=== PATIENT | female | born 1990 | race Hispanic/Latino ===

== ENCOUNTER 2020-08-18 05:56 | Emergency (ER) | payer OTHER, SELFPAY ==
[~2020-08-18] VITALS: Ht 160 cm; Wt 74.1 kg
[2020-08-18] MEDS ORDERED: PROP120C PO ×2 (06:26→10:02)
[2020-08-18 06:59] LABS: BASO % 0.4 % (0.0-1.0); EOS # 0.1 10^3/uL (0.0-0.5); EOS % 0.7 % (0.0-3.0); HEMATOCRIT 42.1 % (36.0-47.0); HEMOGLOBIN 13.4 g/dl (12.0-15.5); LYMPH # 2.9 10^3/uL (1.5-5.0); LYMPH % 38.6 % (24.0-44.0); MEAN CORPUSCULAR HEMOGLOBIN 29.4 pg (27.0-33.0); MEAN CORPUSCULAR HGB CONC 31.8 g/dl (32.0-36.5); MEAN CORPUSCULAR VOLUME 92.3 fl (80.0-96.0); MONO # 0.6 10^3/uL (0.0-0.8); MONO % 7.7 % (2.0-8.0); NEUTROPHILS # 3.9 10^3/uL (1.5-8.5); NEUTROPHILS % 52.3 % (36.0-66.0); PLATELET COUNT, AUTOMATED 280 10^3/uL (150-450); RED BLOOD COUNT 4.56 10^6/uL (4.00-5.40); WHITE BLOOD COUNT 7.4 10^3/uL (4.0-10.0)
[2020-08-18 07:33] LABS: BLOOD UREA NITROGEN 13 MG/DL (7-18); CALCIUM LEVEL 8.7 MG/DL (8.5-10.1); CARBON DIOXIDE LEVEL 27 MEQ/L (21-32); CHLORIDE LEVEL 108 MEQ/L (98-107); CK-MB VALUE MASS < 1.0 NG/ML (<3.6); CPK CREATINE PHOSPHOKINASE 112 U/L (26-192); CREATININE FOR GFR 0.71 MG/DL (0.55-1.30); FREE T4 0.96 NG/DL (0.76-1.46); GLOMERULAR FILTRATION RATE > 60.0 (>60); GLUCOSE, FASTING 89 MG/DL (70-100); MAGNESIUM LEVEL 2.2 MG/DL (1.8-2.4); MB/CK RELATIVE INDEX 0.89 (< OR =4); POTASSIUM SERUM 3.7 MEQ/L (3.5-5.1); SODIUM LEVEL 141 MEQ/L (136-145); TROPONIN I < 0.02 NG/ML (< 0.10)
[2020-08-18 07:38] LABS: HCG, SERUM QUALITATIVE NEGATIVE (NEGATIVE)
--- NOTE | 2020-08-18 08:26 | REP ---
INDICATION: CHEST PAIN. COMPARISON: . TECHNIQUE: Chest portable AP chest with the patient upright. FINDINGS: The lung sainz are clear. Cardiac size is normal. The nayely, mediastinum and skeletal structures are unremarkable. IMPRESSION: Essentially negative portable chest <Electronically signed by Jhonathan Scott > 08/18/20 [id number]
[2020-08-18 10:23] VITALS: BP 111/75
--- NOTE | 2020-08-19 01:36 | ECGEPIP ---
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
== END 2020-08-18 10:31 | disposition home or self-care (01) ==
LOC: M ED 05:56
DX: R00.2 Palpitations (principal); I47.1 Supraventricular tachycardia; Z88.0 Allergy status to penicillin; Z88.8 Allergy status to other drugs, medicaments and biological substances; Z91.89 Other specified personal risk factors, not elsewhere classified; Z91.030 Bee allergy status; Z91.013 Allergy to seafood

== ENCOUNTER 2020-09-25 18:52 | Emergency (ER) | payer SELFPAY ==
[~2020-09-25] VITALS: Ht 160 cm; Wt 74.1 kg
[~2020-09-25 18:52] MED LIST: PROP120C PO
[2020-09-25] MEDS ORDERED: METOPROLOL 5 MG/5 ML VIAL IV STA (19:40)
[2020-09-25] MEDS ORDERED: NS 1,000 ML IV ONE (19:50)
--- NOTE | 2020-09-25 19:51 | ECGEPIP ---
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
[2020-09-25 19:52] VITALS: BP 129/79
[2020-09-25 20:15] LABS: BASO % 0.3 % (0.0-1.0); EOS % 0.3 % (0.0-3.0); HEMATOCRIT 38.9 % (36.0-47.0); HEMOGLOBIN 12.7 g/dl (12.0-15.5); LYMPH # 3.1 10^3/uL (1.5-5.0); LYMPH % 29.1 % (24.0-44.0); MEAN CORPUSCULAR HEMOGLOBIN 29.3 pg (27.0-33.0); MEAN CORPUSCULAR HGB CONC 32.6 g/dl (32.0-36.5); MEAN CORPUSCULAR VOLUME 89.8 fl (80.0-96.0); MONO # 0.6 10^3/uL (0.0-0.8); MONO % 5.3 % (2.0-8.0); NEUTROPHILS # 6.9 10^3/uL (1.5-8.5); NEUTROPHILS % 64.6 % (36.0-66.0); PLATELET COUNT, AUTOMATED 280 10^3/uL (150-450); RED BLOOD COUNT 4.33 10^6/uL (4.00-5.40); WHITE BLOOD COUNT 10.7 10^3/uL (4.0-10.0)
[2020-09-25 21:02] LABS: ALBUMIN 3.9 GM/DL (3.2-5.2); ALT/SGPT 20 U/L (12-78); BILIRUBIN,DIRECT < 0.1 MG/DL (0.0-0.2); BILIRUBIN,TOTAL 0.3 MG/DL (0.2-1.0); BLOOD UREA NITROGEN 8 MG/DL (7-18); CALCIUM LEVEL 9.5 MG/DL (8.5-10.1); CARBON DIOXIDE LEVEL 26 MEQ/L (21-32); CHLORIDE LEVEL 106 MEQ/L (98-107); CK-MB VALUE MASS < 1.0 NG/ML (<3.6); CPK CREATINE PHOSPHOKINASE 94 U/L (26-192); CREATININE FOR GFR 0.79 MG/DL (0.55-1.30); GLOMERULAR FILTRATION RATE > 60.0 (>60); GLUCOSE, FASTING 99 MG/DL (70-100); MB/CK RELATIVE INDEX 1.06 (< OR =4); POTASSIUM SERUM 4.1 MEQ/L (3.5-5.1); RSV AMPLIFICATION NEGATIVE (NEGATIVE); SODIUM LEVEL 139 MEQ/L (136-145); THYROXINE (T4) 7.4 UG/DL (4.5-12.0); TOTAL PROTEIN 7.6 GM/DL (6.4-8.2); TROPONIN I < 0.02 NG/ML (< 0.10)
[2020-09-25 21:21] LABS: HCG, SERUM QUALITATIVE NEGATIVE (NEGATIVE)
[2020-09-25] MEDS ORDERED: ISOVUE-370 76% 100ML VIAL As Ordered ONE (21:51)
--- NOTE | 2020-09-25 22:06 | REPVR ---
PROCEDURE INFORMATION: Exam: XR Chest Exam date and time: 09/25/2020 9:34 PM Age: 30 years old Clinical indication: Cough and dyspnea; Additional info: Dyspnea/cough TECHNIQUE: Imaging protocol: XR of the chest. Views: 1 view. COMPARISON: SD PORTABLE CHEST X-RAY 08/18/2020 8:19 AM FINDINGS: Lungs: Unremarkable. No consolidation. Pleural spaces: Unremarkable. No pleural effusion. No pneumothorax. Heart/Mediastinum: Unremarkable. No cardiomegaly. Bones/joints: Unremarkable. IMPRESSION: No acute findings. Electronically signed by: Edy Crawford On 09/25/2020 22:06:03 PM
--- NOTE | 2020-09-25 22:41 | REPVR ---
PROCEDURE INFORMATION: Exam: CTA Chest With Contrast Exam date and time: 09/25/2020 10:11 PM Age: 30 years old Clinical indication: Abnormal findings; Other: High d-dimer; Prior surgery; Surgery date: 6+ months; Additional info: Eval for pe, tacycardia with elevated dimer TECHNIQUE: Imaging protocol: Computed tomographic angiography of the chest with contrast. 3D rendering (Not supervised by radiologist): MIP and/or 3D reconstructed images were created by the technologist. Radiation optimization: All CT scans at this facility use at least one of these dose optimization techniques: automated exposure control; mA and/or kV adjustment per patient size (includes targeted exams where dose is matched to clinical indication); or iterative reconstruction. Contrast material: ISOVUE 370; Contrast volume: 75 ml; Contrast route: INTRAVENOUS (IV); COMPARISON: CR PORTABLE CHEST X-RAY 09/25/2020 9:28 PM FINDINGS: Pulmonary arteries: The main pulmonary artery measures 21 mm. No pulmonary embolism is identified. Aorta: The ascending thoracic aorta measures 26 mm. Lungs: Unremarkable. No consolidation. No masses. Pleural spaces: Unremarkable. No pneumothorax. No pleural effusion. Heart: Unremarkable. No cardiomegaly. No pericardial effusion. Lymph nodes: Unremarkable. No enlarged lymph nodes. Gallbladder and bile ducts: The gallbladder is contracted with no stones. Bones/joints: Unremarkable. No acute fracture. Soft tissues: Unremarkable. IMPRESSION: Negative CTA chest. No pulmonary embolism is identified. Electronically signed by: Moy Blake On 09/25/2020 22:41:34 PM
[2020-09-25 23:20] VITALS: BP 116/94
== END 2020-09-25 23:23 | disposition home or self-care (01) ==
LOC: M ED 18:52
DX: R00.0 Tachycardia, unspecified (principal); R00.2 Palpitations; Z95.818 Presence of other cardiac implants and grafts; F41.9 Anxiety disorder, unspecified; F43.10 Post-traumatic stress disorder, unspecified; Z88.0 Allergy status to penicillin; Z91.89 Other specified personal risk factors, not elsewhere classified; Z88.8 Allergy status to other drugs, medicaments and biological substances; Z91.013 Allergy to seafood; Z91.030 Bee allergy status
CPT/HCPCS: 71045; 71275; 80048; 80076; 82550; 82553; 83735; 84436; 84443; 84484; 84703; 85025; 85379; 87631; 93005; 93041; 94760; 96361; 96374; 99285; Q9967

== ENCOUNTER 2020-11-06 11:59 | Emergency (ER) | payer OTHER, SELFPAY ==
[~2020-11-06] VITALS: Ht 160 cm; Wt 75.1 kg
[2020-11-06] MEDS ORDERED: METO1TAB87 (12:15)
[2020-11-06 13:07] LABS: HEMATOCRIT 42.1 % (36.0-47.0); HEMOGLOBIN 13.4 g/dl (12.0-15.5); MEAN CORPUSCULAR HGB CONC 31.8 g/dl (32.0-36.5); MEAN CORPUSCULAR VOLUME 91.1 fl (80.0-96.0); PLATELET COUNT, AUTOMATED 277 10^3/uL (150-450); RED BLOOD COUNT 4.62 10^6/uL (4.00-5.40)
[2020-11-06 13:35] LABS: HCG, SERUM QUALITATIVE NEGATIVE (NEGATIVE)
[2020-11-06 13:36] VITALS: BP 132/83
[2020-11-06 13:36] LABS: AMPHETAMINES LEVEL URINE NEGATIVE (NEGATIVE); BARBITURATES URINE NEGATIVE (NEGATIVE); BENZODIAZEPINES URINE NEGATIVE (NEGATIVE); CANNABINOIDS URINE NEGATIVE (NEGATIVE); COCAINE METABOLITE URINE NEGATIVE (NEGATIVE); METHADONE URINE NEGATIVE (NEGATIVE); OPIATES URINE NEGATIVE (NEGATIVE); PHENCYCLIDINE URINE NEGATIVE (NEGATIVE)
[2020-11-06 13:44] LABS: BLOOD UREA NITROGEN 8 MG/DL (7-18); CARBON DIOXIDE LEVEL 28 MEQ/L (21-32); CHLORIDE LEVEL 105 MEQ/L (98-107); CREATININE FOR GFR 0.72 MG/DL (0.55-1.30); FREE THYROXINE INDEX 1.9 % (1.3-4.8); GLOMERULAR FILTRATION RATE > 60.0 (>60); GLUCOSE, FASTING 86 MG/DL (70-100); MAGNESIUM LEVEL 2.1 MG/DL (1.8-2.4); SODIUM LEVEL 139 MEQ/L (136-145); T UPTAKE 27 % (30-39); THYROXINE (T4) 6.9 UG/DL (4.5-12.0)
--- NOTE | 2020-11-07 16:54 | ECGEPIP ---
[facility] - ED Test Date: 2020-11-06 Pat Name: AMOL BLAIR Department: Room: - Gender: Female Payroll Lead: LR : 1990 Requested By: Ragini Vera Order Number: [id number] Reading MD: Ragini Vera Measurements Intervals [place] Rate: 107 P: 68 ND: 160 QRS: 61 QRSD: 72 T: 16 QT: 334 QTc: 445 Interpretive Statements Sinus tachycardia Low voltage QRS NSTTW abnormalities decreased rate 09/25/20 Electronically Signed on 11-07-2020 16:54:02 EDT by Ragini Vera
== END 2020-11-06 14:23 | disposition home or self-care (01) ==
LOC: EDBD 11:59 → M ED 11:59
DX: R00.0 Tachycardia, unspecified (principal); H61.21 Impacted cerumen, right ear; R42 Dizziness and giddiness; Z95.818 Presence of other cardiac implants and grafts; Z79.899 Other long term (current) drug therapy; Z88.0 Allergy status to penicillin; Z88.8 Allergy status to other drugs, medicaments and biological substances; Z91.013 Allergy to seafood; Z91.030 Bee allergy status; Z91.89 Other specified personal risk factors, not elsewhere classified

== ENCOUNTER 2020-11-17 19:49 | Emergency (ER) | payer OTHER ==
[~2020-11-17 19:49] MED LIST changes: +METO1TAB87
[2020-11-17 20:19] LABS: BASO # 0.1 10^3/uL (0.0-0.2); BASO % 0.6 % (0.0-1.0); EOS # 0.1 10^3/uL (0.0-0.5); EOS % 0.7 % (0.0-3.0); HEMATOCRIT 40.6 % (36.0-47.0); LYMPH # 3.3 10^3/uL (1.5-5.0); LYMPH % 40.2 % (24.0-44.0); MEAN CORPUSCULAR VOLUME 90.6 fl (80.0-96.0); MONO # 0.6 10^3/uL (0.0-0.8); MONO % 7.7 % (2.0-8.0); NEUTROPHILS # 4.1 10^3/uL (1.5-8.5); NEUTROPHILS % 50.3 % (36.0-66.0); PLATELET COUNT, AUTOMATED 274 10^3/uL (150-450); RED BLOOD COUNT 4.48 10^6/uL (4.00-5.40); WHITE BLOOD COUNT 8.1 10^3/uL (4.0-10.0)
[2020-11-17 20:51] LABS: HCG, SERUM QUALITATIVE NEGATIVE (NEGATIVE)
[2020-11-17 21:00] LABS: BLOOD UREA NITROGEN 10 MG/DL (7-18); CALCIUM LEVEL 9.2 MG/DL (8.5-10.1); CARBON DIOXIDE LEVEL 28 MEQ/L (21-32); CHLORIDE LEVEL 108 MEQ/L (98-107); CK-MB VALUE MASS < 1.0 NG/ML (<3.6); CPK CREATINE PHOSPHOKINASE 83 U/L (26-192); CREATININE FOR GFR 0.76 MG/DL (0.55-1.30); FREE T4 0.85 NG/DL (0.76-1.46); GLOMERULAR FILTRATION RATE > 60.0 (>60); GLUCOSE, FASTING 98 MG/DL (70-100); POTASSIUM SERUM 4.1 MEQ/L (3.5-5.1); SODIUM LEVEL 141 MEQ/L (136-145); TROPONIN I < 0.02 NG/ML (< 0.10)
--- NOTE | 2020-11-17 21:28 | ECGEPIP ---
[facility] - ED Test Date: 2020-11-17 Pat Name: AMOL BLAIR Department: Room: - Gender: Female Database Dba: : 1990 Requested By: HAY Delgado Order Number: [id number] Reading MD: Delfino Cameron Measurements Intervals [place] Rate: 105 P: 51 [place]: 152 QRS: 4 QRSD: 74 T: 14 QT: 338 QTc: 446 Interpretive Statements Sinus tachycardia NSTTW ABNORMALITY(S) BASELINE ARTIFACT AFFECTS INTERPRETATION Electronically Signed on 11-17-2020 21:27:36 EDT by Delfino Cameron
--- NOTE | 2020-11-17 22:16 | REPVR ---
PROCEDURE INFORMATION: Exam: XR Chest Exam date and time: 11/17/2020 9:26 PM Age: 30 years old Clinical indication: Pain; Angina pectoris; Additional info: Chest pain TECHNIQUE: Imaging protocol: XR of the chest. Views: 1 view. COMPARISON: CR PORTABLE CHEST X-RAY 09/25/2020 9:28 PM FINDINGS: Tubes, catheters and devices: A loop recorder is again noted. Lungs: Unremarkable. No consolidation. Pleural spaces: Unremarkable. No pleural effusion. No pneumothorax. Heart/Mediastinum: Unremarkable. No cardiomegaly. Bones/joints: Unremarkable. IMPRESSION: Stable essentially negative chest since 09/25/2020. Electronically signed by: Moy Blake On 11/17/2020 22:16:17 PM
[2020-11-17 22:30] VITALS: BP 147/76
== END 2020-11-17 22:56 | disposition home or self-care (01) ==
LOC: M ED 19:49
DX: R00.0 Tachycardia, unspecified (principal); F43.10 Post-traumatic stress disorder, unspecified; Z88.0 Allergy status to penicillin; Z88.8 Allergy status to other drugs, medicaments and biological substances; Z91.89 Other specified personal risk factors, not elsewhere classified; Z91.013 Allergy to seafood; Z91.030 Bee allergy status

== ENCOUNTER 2021-03-08 12:43 | Emergency (ER) | payer OTHER ==
[~2021-03-08] VITALS: Ht 160 cm; Wt 77.3 kg
--- OUTSIDE RECORDS SUMMARY | 2021-03-08 12:51 | CCD ---
Author Author [facility] Organization [facility] Address Unknown Phone Unavailable Care Team Providers Care Retort Pre Cooker Name Role Phone Nelson Chahal MD Unavailable Unavailable Nelson Chahal MD Unavailable Unavailable Nelson Chahal MD Unavailable Unavailable Xexemeku, K Jon SORTO Unavailable Unavailable Xexemeku, K Jon SORTO Unavailable Unavailable Xexemeku, K Jon SORTO Unavailable Unavailable Xexemeku, K Jon SORTO Unavailable Unavailable Xexemeku, K Jon SORTO Unavailable Unavailable Xexemeku, K Jon SORTO Unavailable Unavailable Xexemeku, K Jon SORTO Unavailable Unavailable Xexemeku, K Jon SORTO Unavailable Unavailable Xexemeku, K Jon SORTO Unavailable Unavailable Xexemeku, K Jon SORTO Unavailable Unavailable Xexemeku, K Jon SORTO Unavailable Unavailable Xexemeku, K Jon SORTO Unavailable Unavailable Xexemeku, K Jon SORTO Unavailable Unavailable Xexemeku, K Jon SORTO Unavailable Unavailable Xexemeku, K Jon SORTO Unavailable Unavailable Xexemeku, K Jon SORTO Unavailable Unavailable Xexemeku, K Jon SORTO Unavailable Unavailable Xexemeku, K Jon SORTO Unavailable Unavailable Xexemeku, K Jon SORTO Unavailable Unavailable Xexemeku, K Jon SORTO Unavailable Unavailable Xexemeku, K Jon SORTO Unavailable Unavailable Xexemeku, K Jon SORTO Unavailable Unavailable Xexemeku, K Jon SORTO Unavailable Unavailable Xexemeku, K Jon SORTO Unavailable Unavailable Xexemeku, K Jon SORTO Unavailable Unavailable Xexemeku, K Jon SORTO Unavailable Unavailable Xexemeku, K Jon SORTO Unavailable Unavailable Xexemeku, K Jon SORTO Unavailable Unavailable Xexemeku, K Jon SORTO Unavailable Unavailable Xexemeku, K Jon SORTO Unavailable Unavailable Xexemeku, K Jon SORTO Unavailable Unavailable Xexemeku, K Jon SORTO Unavailable Unavailable Xexemeku, K Jon SORTO Unavailable Unavailable Xexemeku, K Jon SORTO Unavailable Unavailable Xexemeku, K Jon SORTO Unavailable Unavailable Xexemeku, K Jon SORTO Unavailable Unavailable Xexemeku, K Jon SORTO Unavailable Unavailable Xexemeku, K Jon SORTO Unavailable Unavailable Xexemeku, K Jon SORTO Unavailable Unavailable Xexemeku, K Jon SORTO Unavailable Unavailable Xexemeku, K Jon SORTO Unavailable Unavailable Xexemeku, K Jon SORTO Unavailable Unavailable Xexemeku, K Jon SORTO Unavailable Unavailable Xexemeku, K Jon SORTO Unavailable Unavailable Xexemeku, K Jon SORTO Unavailable Unavailable Xexemeku, K Jon SORTO Unavailable Unavailable Xexemeku, K Jon SORTO Unavailable Unavailable Xexemeku, K Jon SORTO Unavailable Unavailable Xexemeku, K Jon SORTO Unavailable Unavailable Xexemeku, K Jon SORTO Unavailable Unavailable Xexemeku, K Jon SORTO Unavailable Unavailable Xexemeku, K Jon SORTO Unavailable Unavailable Xexemeku, K Jon SORTO Unavailable Unavailable Xexemeku, K Jon SORTO Unavailable Unavailable Xexemeku, K Jon SORTO Unavailable Unavailable Xexemeku, K Jon SORTO Unavailable Unavailable Xexemeku, K Jon SORTO Unavailable Unavailable Xexemeku, K Jon SORTO Unavailable Unavailable PHYSICIAN, PHYSICIAN ER Unavailable Unavailable Carlos Lai MD Unavailable Unavailable Carlos Lai MD Unavailable Unavailable Carlos Lai MD Unavailable Unavailable Carlos Lai MD Unavailable Unavailable Carlos Lai MD Unavailable Unavailable Carlos Lai MD Unavailable Unavailable Carlos Lai MD Unavailable Unavailable Carlos Lai MD Unavailable Unavailable Carlos Lai MD Unavailable Unavailable Carlos Lai MD Unavailable Unavailable Carlos Lai MD Unavailable Unavailable Carlos aLi MD Unavailable Unavailable Carlos Lai MD Unavailable Unavailable Carlos Lai MD Unavailable Unavailable Carlos Lai MD Unavailable Unavailable Carlos Lai MD Unavailable Unavailable Carlos Lai MD Unavailable Unavailable Carlos Lai MD Unavailable Unavailable Carlos Lai MD Unavailable Unavailable Carlos Lai MD Unavailable Unavailable Carlos Lai MD Unavailable Unavailable Carlos Lai MD Unavailable Unavailable Carlos Lai MD Unavailable Unavailable Carlos Lai MD Unavailable Unavailable Carlos Lai MD Unavailable Unavailable PHYSICIAN, ER Unavailable Unavailable Re-disclosure Warning The records that you are about to access may contain information from federally-assisted alcohol or drug abuse programs. If such information is present, then the following federally mandated warning applies: This information has been disclosed to you from records protected by federal confidentiality rules (42 CFR part 2). The federal rules prohibit you from making any further disclosure of this information unless further disclosure is expressly permitted by the written consent of the person to whom it pertains or as otherwise permitted by 42 CFR part 2. A general authorization for the release of medical or other information is NOT sufficient for this purpose. The Federal rules restrict any use of the information to criminally investigate or prosecute any alcohol or drug abuse patient.The records that you are about to access may contain highly sensitive health information, the redisclosure of which is protected by Article 27-F of the [facility] Public Health law. If you continue you may have access to information: Regarding HIV / AIDS; Provided by facilities licensed or operated by the [facility] Office of Mental Health; or Provided by the [facility] Office for People With Developmental Disabilities. If such information is present, then the following [facility] mandated warning applies: This information has been disclosed to you from confidential records which are protected by state law. State law prohibits you from making any further disclosure of this information without the specific written consent of the person to whom it pertains, or as otherwise permitted by law. Any unauthorized further disclosure in violation of state law may result in a fine or fdc sentence or both. A general authorization for the release of medical or other information is NOT sufficient authorization for further disc losure. Encounters Encounter Providers Location Date Indications Data Source(s ) Outpatient Attender: Jon Key MD [facility] [place] 10/11/2020 09:00:00 AM EDT [facility] ([facility]) Emergency Attender: ER PHYSICIAN 10/07/2020 03:50:19 PM E DT Lab [facility] Emergency Attender: Sven Chahal MDAttender: ER PHYSICIAN 10/07/2020 02:12:00 PM EDT - 10/07/2020 06:33:00 PM EDT SV[facility] T[facility]CARD[facility] SVT TACHYCARDIA Patient discharged. Emergency Attender: ER PHYSICIAN 10/07/2020 02:12:00 PM E DT [facility] Outpatient Attender: Chantal Lai MD 0 08/01/2020 01:16:29 PM EST - 08/01/2020 02:30:46 PM EST [facility] ([facility]) Outpatient Attender: Chantal Lai MD 0 07/27/2020 02:36:31 PM EST - 07/27/2020 02:49:29 PM EST [facility] ([facility]) Medications No Information Insurance Providers Payer name Policy type / Coverage type Policy ID Covered alliance party ID Covered alliance party's relationship to albarran Policy Albarran Plan Information [employer] emp [id number] Employee [id number] [facility] [facility] [id number] SP [id number] '[id number] ADMINISTRATION [id number] SP [id number] SELF PAY ONLY [id number] SP [id number] [employer] [facility] [employer] HEA [id number] S [facility] [id number] SP [id number] Problems, Conditions, and Diagnoses No Information Surgeries/Procedures Procedure Description Date Indications Data Source(s) Implantable [employer] Heart Rhythm Derived D alejandro 10/11/2020 12:00:00 AM EDT [facility] ([facility]) Echocardiography, Tranthoracic Real-Time Image Documentation 10/11/2020 12:00:00 AM EDT [facility] ([facility]) Electrocardiogram Interpretation & Report Only 021 12:00:00 AM EDT [facility] ([facility]) Results ID Date Data Source [id number] 10/11/2020 12:00:00 AM EDT [facility] Name Value Range Interpretation Code Description Data Rosa rce(s) Supporting Document(s) SARS-CoV2 Rapid Antigen Negative [facility] This lab [facility] and reported by [facility]. ID Date Data Source [id number] 10/07/2020 04:13:51 PM EDT [facility] Name Value Range Interpretation Code Description Data Rosa rce(s) Supporting Document(s) TSH,ULTRASENSITIVE @ 1.063 mIU/L (0.360-4.170) [facility] PERFORMED AT [address] [facility] [id number] ID Date Data Source [id number] 10/07/2020 04:11:25 PM EDT [facility] Name Value Range Interpretation Code Description Data Rosa rce(s) Supporting Document(s) HCG,QUANT PREG 1 mU/mL [facility] INTERPRETATION:LESS THAN 6 NEGATIVE 6 - 10 BORDERLINE (SUGGEST REPEAT IN 48 HOURS) APPROX HCG RANGE WEEKS POST LMP 11 - 130 3 - 4 WEEKS 75 - 2600 4 - 5 WEEKS 850 - 13698 5 - 6 WEEKS 4000 - [id number] 6 - 7 [id number] - [id number] 7 - 12 [id number] - [id number] 12 - 16 WEEKS 1400 - 64374 16 - 29 WEEKS 940 - 50270 29 - 41 WEEKS ID Date Data Source [id number] 10/07/2020 04:03:31 PM EDT [facility] Name Value Range Interpretation Code Description Data Rosa rce(s) Supporting Document(s) MAGNESIUM 2.1 mg/dL (1.7-2.4) [facility] ID Date Data Source [id number] 10/07/2020 04:03:31 PM EDT [facility] Name Value Range Interpretation Code Description Data Rosa rce(s) Supporting Document(s) SODIUM 138 mmol/L (136-145) [facility] POTASSIUM 3.9 mmol/L (3.6-5.2) [facility] CHLORIDE 105 mmol/L (100-108) [facility] CO2 27 mmol/L (22-31) [facility] ANION GAP 6 mmol/L (7-16) L [facility] UREA NITROGEN 9 mg/dL (7-24) [facility] CREATININE 0.70 mg/dL (0.60-1.00) [facility] BUN/CREAT RATIO 12.9 RATIO (10.0-20.0) [facility] GLUCOSE 90 mg/dL (70-99) [facility] CALCIUM 9.4 mg/dL (8.4-10.2) [facility] GFR >60 ml/min/1.73m2 (>59) [facility] GFR ( AMER) >60 ml/min/1.73m2 (>59) [facility] GFR INTERPRETATION [facility] --NORMAL KIDNEY FUNCTION OR MILD DISEASE - GFR >OR= 60CHRONIC KIDNEY DISEASE - GFR 15 - 59RENAL FAILURE - GFR <15 Est. GFR calculation based on the MDRDstudy equation, which assumes a steadystate for creatinine. Est. GFR should notbe used for medication dosing. ID Date Data Source [id number] 10/07/2020 03:50:19 PM EDT [facility] Name Value Range Interpretation Code Description Data Rosa rce(s) Supporting Document(s) WBC 11.3 10*3/uL (4.1-11.0) H [facility] RBC 4.59 10*6/uL (4.00-5.40) [facility] HGB 13.5 g/dL (12.0-16.0) [facility] HCT 40.5 % (36.0-47.0) [facility] MCV 88.2 fL (80.0-95.0) [facility] MCH 29.4 pg (27.0-32.0) [facility] MCHC 33.3 g/dL (32.0-36.0) [facility] RDW 12.9 % (10.5-14.5) [facility] PLT 307 10*3/uL (150-450) [facility] MPV 7.2 fL (7.1-10.7) [facility] NEUT % 71.0 % (35.0-75.0) [facility] LYMPH % 24.2 % (16.0-52.0) [facility] MONO % 4.2 % (0.0-8.0) [facility] EOS % 0.1 % (0.0-5.0) [facility] BASO % 0.5 % (0.0-4.0) [facility] NEUT # 8.0 10*3/uL (1.8-7.7) H [facility] LYMPH # 2.7 10*3/uL (1.2-4.8) [facility] MONO # 0.5 10*3/uL (0.0-0.8) [facility] Eosinophils [#/volume] in Blood by Automated count 0.0 10*3/uL (0.0-0 .5) [facility] BASO # 0.1 10*3/uL (0.0-0.2) [facility] ID Date Data Source [id number] 10/07/2020 02:59:00 PM EDT [facility] DATE OF EXAM: 10/07/2020HEST RADIOGRAPH , SINGLE VIEW INDICATION: PALPITATIONS COMPARISON: None. TECHNIQUE: Semi-upright AP Portable view of the chest. FINDINGS: Support devices: None. Lungs/Pleura: The lungs are clear. No large effusion or pneumothorax. Cardiomediastinal contours: Within normal limits. Cardiac device overlies the heart. Soft tissues/upper abdomen: Within normal limits. Bones: Unremarkable. IMPRESSION: No acute findings. Professional interpretation performed at [facility] .End of diagnostic report for accession: [id number] Interpreted: Natalya Bryant MDTranscribed: 10/07/2020 02:57 PMSigned: 10/07/2020 02:59 PM Natalya Bryant MD [facility] # [id number] BILL # [id number] Name Value Range Interpretation Code Description Data Rosa rce(s) Supporting Document(s) ID Date Data Source [id number] 09/25/2020 08:06:00 PM EDT [facility] Name Value Range Interpretation Code Description Data Rosa rce(s) Supporting Document(s) SARS coronavirus 2 RNA [Presence] in Res piratory specimen by COLBY with probe detection NEGATIVE [facility] This lab was ordered by [facility] a nd reported by [facility]. Procedure Social History Code Duration Value Status Description Data Source(s ) Smoking 10/07/2020 06:15:00 PM EDT Denies Ever Smoked complete d Denies Ever Smoked [facility] Vital Signs ID Date Data Source UNK Name Value Range Interpretation Code Description Data Source(s) Body weight 165.12 [lb_av] 165.12 [lb_av] [facility] ([facility]) Diastolic blood pressure 82 mm[Hg] 82 mm[Hg] [facility] ([facility]) Systolic blood pressure 122 mm[Hg] 122 mm[Hg] [facility] ([facility]) Body height 63 [in_i] 63 [in_i] [facility] ([facility]) 5'3" Body mass index (BMI) [Ratio] 29.2 kg/m2 29.2 k g/m2 [facility] ([facility]) Systolic blood pressure 118 mm[Hg] 118 mm[Hg] M [facility] Diastolic blood pressure 80 mm[Hg] 80 mm[Hg] [facility] ([facility]) Heart rate 95 /min 95 /min [facility] ([facility]) Systolic blood pressure 114 mm[Hg] Normal (applies t o non-numeric results) 114 mm[Hg] [facility] Diastolic blood pressure 73 mm[Hg] Normal (applies to non-numeric results) 73 mm[Hg] [facility] Body mass index (BMI) [Ratio] 28.8 kg/m2 No rmal (applies to non-numeric results) 28.8 kg/m2 [facility] Heart rate 75 min Normal (applies to non-numeric resul ts) 75 min [facility] Deprecated Oxygen saturation in Capillary blood by Oximetry 98 % Normal (applies to non-numeric results) 98 % [facility] Respiratory rate 16 min Normal (applies to non-numeric results) 16 min [facility] Body height 159.7152 cm Normal (applies to non-numeric res ults) 159.7152 cm [facility] Body temperature 36.8 angelita Normal (applies to non-numeric results) 36.8 angelita [facility] Body weight Measured 163 [lb_av] Normal (applies to n on-numeric results) 163 [lb_av] [facility]
--- OUTSIDE RECORDS SUMMARY | 2021-03-08 14:36 | CCD ---
Author Author [facility] Organization [facility] Address Unknown Phone Unavailable Care Team Providers Care Contaminated Land Consultant Name Role Phone Nelson Chahal MD Unavailable [...] Unavailable Carlos Lai MD Unavailable Unavailable Carlos Lia MD Unavailable Unavailable PHYSICIAN, ER Unavailable Unavailable [...] is protected by Article 27-F of the [facility] Public Health law. If you continue you may have access to information: Regarding HIV / AIDS; Provided by facilities licensed or operated by the [facility] Office of Mental Health; or Provided by the [facility] Office for People With Developmental Disabilities. If such information is present, then the following [facility] mandated warning applies: This information has been [...] law may result in a fine or nursing home sentence or both. A general authorization for the release of medical or other information is NOT sufficient authorization for further disc losure. Encounters Encounter Providers Location Date Indications Data Source(s ) Outpatient Attender: Jon eKy MD [facility] [place] 10/11/2020 09:00:00 AM EDT [facility] ([facility]) Emergency Attender: ER PHYSICIAN 10/07/2020 03:50:19 PM E DT Lab [facility] Emergency Attender: Sven Chahal MDAttender: ER PHYSICIAN 10/07/2020 02:12:00 PM EDT - 10/07/2020 06:33:00 PM EDT [facility] SVT TACHYCARDIA Patient discharged. Emergency Attender: ER PHYSICIAN 10/07/2020 02:12:00 PM E DT [facility] Outpatient Attender: Chantal Lai MD 0 08/01/2020 01:16:29 PM EST - 08/01/2020 02:30:46 PM EST [facility] ([facility]) Outpatient Attender: Chantal Lai MD 0 07/27/2020 02:36:31 PM EST - 07/27/2020 02:49:29 PM EST [facility] ([facility]) Medications No Information Insurance Providers Payer name Policy type / Coverage type Policy ID Covered democrat ID Covered democrat's relationship to albarran Policy Albarran Plan Information [employer] emp [id number] Employee [id number] [facility] [facility] [id number] SP [id number] '[id number] ADMINISTRATION [id number] SP [id number] SELF PAY ONLY [id number] SP [id number] [facility] [id number] [facility] [id number] SP [id number] Problems, Conditions, and Diagnoses No Information Surgeries/Procedures Procedure Description Date Indications Data Source(s) [employer] Heart Rhythm Derived D alejandro 10/11/2020 12:00:00 AM EDT [facility] ([facility]) Echocardiography, Tranthoracic Real-Time Image Documentation 10/11/2020 12:00:00 AM EDT [facility] ([facility]) Electrocardiogram Interpretation & Report Only 021 12:00:00 AM EDT [facility] ([facility]) Results ID Date Data Source [id number] 10/11/2020 12:00:00 AM EDT [facility] Name Value Range Interpretation Code Description Data Rosa rce(s) Supporting Document(s) SARS-CoV2 Rapid Antigen Negative [facility] and reported by [facility]. ID Date Data Source [id number] 10/07/2020 04:13:51 PM EDT [facility] Name Value Range Interpretation Code Description Data Rosa rce(s) Supporting Document(s) TSH,ULTRASENSITIVE @ 1.063 mIU/L (0.360-4.170) [facility] PERFORMED AT [address] [facility] [address] ID Date Data Source [id number] 10/07/2020 04:11:25 PM EDT [facility] Name Value Range Interpretation Code Description Data Rosa rce(s) Supporting Document(s) HCG,QUANT PREG 1 mU/mL [facility] INTERPRETATION:LESS THAN 6 NEGATIVE 6 - 10 BORDERLINE (SUGGEST REPEAT IN 48 HOURS) APPROX HCG RANGE WEEKS POST LMP 11 - 130 3 - 4 WEEKS 75 - 2600 4 - 5 WEEKS 850 - 61549 5 - 6 WEEKS 4000 - 596050 6 - 7 [id number] - [id number] 7 - 12 [id number] - [id number] 12 - 16 WEEKS 1400 - 68466 16 - 29 WEEKS 940 - 02864 29 - 41 WEEKS ID Date Data Source [id number] 10/07/2020 04:03:31 PM EDT [facility] Name Value Range Interpretation Code Description Data Rosa rce(s) Supporting Document(s) MAGNESIUM 2.1 mg/dL (1.7-2.4) [facility] ID Date Data Source [id number] 10/07/2020 04:03:31 PM EDT [facility] Name Value Range Interpretation Code Description Data Rosa rce(s) Supporting Document(s) SODIUM 138 mmol/L (136-145) [facility] POTASSIUM 3.9 mmol/L (3.6-5.2) [facility] CHLORIDE 105 mmol/L (100-108) [facility] CO2 27 mmol/L (22-31) [facility] ANION GAP 6 mmol/L (7-16) L [facility] UREA NITROGEN 9 mg/dL (7-24) [facility] CREATININE 0.70 mg/dL (0.60-1.00) [facility] BUN/CREAT RATIO 12.9 RATIO (10.0-20.0) [facility] GLUCOSE 90 mg/dL (70-99) [facility] CALCIUM 9.4 mg/dL (8.4-10.2) [facility] GFR >60 ml/min/1.73m2 (>59) [facility] GFR ( AMER) >60 ml/min/1.73m2 (>59) [facility] GFR INTERPRETATION [facility] --NORMAL KIDNEY FUNCTION OR MILD DISEASE - GFR >OR= 60CHRONIC KIDNEY DISEASE - GFR 15 - 59RENAL FAILURE - GFR <15 Est. GFR calculation based on the MDRDstudy equation, which assumes a steadystate for creatinine. Est. GFR should notbe used for medication dosing. ID Date Data Source [id number] 10/07/2020 03:50:19 PM EDT [facility] Name Value Range Interpretation Code Description Data Rosa rce(s) Supporting Document(s) WBC 11.3 10*3/uL (4.1-11.0) H [facility] RBC 4.59 10*6/uL (4.00-5.40) [facility] HGB 13.5 g/dL (12.0-16.0) [facility] HCT 40.5 % (36.0-47.0) [facility] MCV 88.2 fL (80.0-95.0) [facility] MCH 29.4 pg (27.0-32.0) [facility] MCHC 33.3 g/dL (32.0-36.0) [facility] RDW 12.9 % (10.5-14.5) [facility] PLT 307 10*3/uL (150-450) [facility] MPV 7.2 fL (7.1-10.7) [facility] NEUT % 71.0 % (35.0-75.0) [facility] LYMPH % 24.2 % (16.0-52.0) [facility] MONO % 4.2 % (0.0-8.0) [facility] EOS % 0.1 % (0.0-5.0) [facility] BASO % 0.5 % (0.0-4.0) [facility] NEUT # 8.0 10*3/uL (1.8-7.7) H [facility] LYMPH # 2.7 10*3/uL (1.2-4.8) [facility] MONO # 0.5 10*3/uL (0.0-0.8) [facility] Eosinophils [#/volume] in Blood by Automated count 0.0 10*3/uL (0.0-0 .5) [facility] BASO # 0.1 10*3/uL (0.0-0.2) [facility] ID Date Data Source [id number] 10/07/2020 02:59:00 PM EDT [facility] DATE OF EXAM: 10/07/2020HEST RADIOGRAPH , SINGLE VIEW INDICATION: PALPITATIONS COMPARISON: None. TECHNIQUE: Semi-upright AP Portable view of the chest. FINDINGS: Support devices: None. Lungs/Pleura: The lungs are clear. No large effusion or pneumothorax. Cardiomediastinal contours: Within normal limits. Cardiac device overlies the heart. Soft tissues/upper abdomen: Within normal limits. Bones: Unremarkable. IMPRESSION: No acute findings. Professional interpretation performed at [facility] .End of diagnostic report for accession: [id number] Interpreted: Natalya Bryant MDTranscribed: 10/07/2020 02:57 PMSigned: 10/07/2020 02:59 PM Natalya Bryant MD [facility] # [id number] BILL # [id number] Name Value Range Interpretation Code Description Data Rosa rce(s) Supporting Document(s) ID Date Data Source [id number] 09/25/2020 08:06:00 PM EDT [facility] Name Value Range Interpretation Code Description Data Rosa rce(s) Supporting Document(s) SARS coronavirus 2 RNA [Presence] in Res piratory specimen by COLBY with probe detection NEGATIVE [facility] This lab was ordered by [facility] a nd reported by [facility]. Procedure Social History Code Duration Value Status Description Data Source(s ) Smoking 10/07/2020 06:15:00 PM EDT Denies Ever Smoked complete d Denies Ever Smoked [facility] Vital Signs ID Date Data Source UNK Name Value Range Interpretation Code Description Data Source(s) Body weight 165.12 [lb_av] 165.12 [lb_av] [facility] ([facility]) Body height 63 [in_i] 63 [in_i] [facility] 5'3" Diastolic blood pressure 82 mm[Hg] 82 mm[Hg] [facility] Body mass index (BMI) [Ratio] 29.2 kg/m2 29.2 k g/m2 [facility] ([facility]) Systolic blood pressure 118 mm[Hg] 118 mm[Hg] [facility] ([facility]) Diastolic blood pressure 80 mm[Hg] 80 mm[Hg] [facility] ([facility]) Systolic blood pressure 122 mm[Hg] 122 mm[Hg] [facility] ([facility]) Heart rate 95 /min 95 /min [facility] ([facility]) Systolic blood pressure 114 mm[Hg] Normal (applies t o non-numeric results) 114 mm[Hg] [facility] Diastolic blood pressure 73 mm[Hg] Normal (applies to non-numeric results) 73 mm[Hg] [facility] Body mass index (BMI) [Ratio] 28.8 kg/m2 No rmal (applies to non-numeric results) 28.8 kg/m2 [facility] Heart rate 75 min Normal (applies to non-numeric resul ts) 75 min [facility] Deprecated Oxygen saturation in Capillary blood by Oximetry 98 % Normal (applies to non-numeric results) 98 % [facility] Respiratory rate 16 min Normal (applies to non-numeric results) 16 min [facility] Body height 159.7152 cm Normal (applies to non-numeric res ults) 159.7152 cm [facility] Body temperature 36.8 angelita Normal (applies to non-numeric results) 36.8 angelita [facility] Body weight Measured 163 [lb_av] Normal (applies to n on-numeric results) 163 [lb_av] [facility]
[2021-03-08 15:25] LABS: BASO % 0.5 % (0.0-1.0); EOS # 0.1 10^3/uL (0.0-0.5); EOS % 0.6 % (0.0-3.0); HEMATOCRIT 39.4 % (36.0-47.0); HEMOGLOBIN 12.7 g/dl (12.0-15.5); LYMPH # 2.6 10^3/uL (1.5-5.0); LYMPH % 30.8 % (24.0-44.0); MEAN CORPUSCULAR HEMOGLOBIN 29.1 pg (27.0-33.0); MEAN CORPUSCULAR HGB CONC 32.2 g/dl (32.0-36.5); MEAN CORPUSCULAR VOLUME 90.2 fl (80.0-96.0); MONO # 0.5 10^3/uL (0.0-0.8); MONO % 6.2 % (2.0-8.0); NEUTROPHILS # 5.2 10^3/uL (1.5-8.5); NEUTROPHILS % 61.7 % (36.0-66.0); PLATELET COUNT, AUTOMATED 282 10^3/uL (150-450); RED BLOOD COUNT 4.37 10^6/uL (4.00-5.40); WHITE BLOOD COUNT 8.4 10^3/uL (4.0-10.0)
[2021-03-08 15:59] LABS: ALBUMIN 3.6 GM/DL (3.2-5.2); ALT/SGPT 19 U/L (12-78); BILIRUBIN,DIRECT < 0.1 MG/DL (0.0-0.2); BILIRUBIN,TOTAL 0.2 MG/DL (0.2-1.0); BLOOD UREA NITROGEN 11 MG/DL (7-18); CALCIUM LEVEL 8.7 MG/DL (8.5-10.1); CARBON DIOXIDE LEVEL 29 MEQ/L (21-32); CHLORIDE LEVEL 108 MEQ/L (98-107); CK-MB VALUE MASS < 1.0 NG/ML (<3.6); CPK CREATINE PHOSPHOKINASE 145 U/L (26-192); CREATININE FOR GFR 0.78 MG/DL (0.55-1.30); FREE T4 0.77 NG/DL (0.76-1.46); GLOMERULAR FILTRATION RATE > 60.0 (>60); GLUCOSE, FASTING 83 MG/DL (70-100); MB/CK RELATIVE INDEX 0.69 (< OR =4); POTASSIUM SERUM 4.3 MEQ/L (3.5-5.1); SODIUM LEVEL 141 MEQ/L (136-145); TOTAL PROTEIN 7.5 GM/DL (6.4-8.2); TROPONIN I < 0.02 NG/ML (< 0.10)
[2021-03-08 16:26] VITALS: BP 136/98
--- NOTE | 2021-03-09 07:37 | ECGEPIP ---
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
== END 2021-03-08 16:57 | disposition home or self-care (01) ==
LOC: M ED 12:43
DX: R00.2 Palpitations (principal); R00.0 Tachycardia, unspecified; Z79.899 Other long term (current) drug therapy; Z88.0 Allergy status to penicillin; Z91.030 Bee allergy status; Z91.013 Allergy to seafood; Z91.89 Other specified personal risk factors, not elsewhere classified; Z88.8 Allergy status to other drugs, medicaments and biological substances